=== PATIENT | female | born 1965 | race American Indian/Alaskan Native ===

== ENCOUNTER 2018-11-21 20:16 | Emergency (ER) | payer BC ==
--- NOTE | 2018-11-21 21:54 | Emergency Department Report ---
Blank Doc - Documentation Documentation: Patient report difficulty breathy with h/o asthma, and acid reflux. Reports ch est pain , mid chest burning. Acid reflux flares and reports vomiting and burping. Came via ambulance.. reports SOB. pain 7/10 burning and constant. Positive cough. Uses asthma inhaler once monthly IBS- linzess GERD- zantac ASTHMA- Inhalker Lungs : CTAB, positive cough Noted frequent burping Tacchycardic at 112 and other vs stable. afeb Anxious labs, xray ekg. Duoneb
[2018-11-21] MEDS ORDERED: DUONEB *Not for PRN Use IH ONE (21:58)
--- NOTE | 2018-11-21 22:39 | XRay Report ---
CHEST 2 VIEWS INDICATION / CLINICAL INFORMATION: Cough and chest pain. COMPARISON: None available. FINDINGS: SUPPORT DEVICES: None. HEART / MEDIASTINUM: The heart size and pulmonary vasculature are normal. The aorta is normal in james yvette. LUNGS / PLEURA: No significant pulmonary or pleural abnormality. No pneumothorax. ADDITIONAL FINDINGS: No significant additional findings. IMPRESSION: No acute findings. Signer Name: Kana Dowd MD Signed: 11/21/2018 10:34 PM Workstation Name: [id number]
[2018-11-21 22:46] LABS: Basophils # (Auto) 0.1 K/mm3 (0.0-0.1); Basophils % (Auto) 0.6 % (0.0-1.8); Eosinophils # (Auto) 0.1 K/mm3 (0.0-0.4); Eosinophils % (Auto) 0.9 % (0.0-4.3); Hematocrit 38.9 % (30.3-42.9); Hemoglobin 13.2 gm/dl (10.1-14.3); Lymphocytes # (Auto) 3.2 K/mm3 (1.2-5.4); Lymphocytes % (Auto) 24.6 % (13.4-35.0); Mean Corpuscular HGB Conc 34 % (30-34); Mean Corpuscular Volume 93 fl (79-97); Monocytes # (Auto) 1.2 K/mm3 (0.0-0.8); Monocytes % (Auto) 8.9 % (0.0-7.3); Platelet Count 240 K/mm3 (140-440); Red Blood Count 4.18 M/mm3 (3.65-5.03); Red Cell Distribution Width 15.5 % (13.2-15.2)
[2018-11-21 23:13] LABS: BUN/Creatinine Ratio 20; Blood Urea Nitrogen 18 mg/dL (7-17); Hemolysis Index 19
[2018-11-22] MEDS ORDERED: ALUM-MAG HYDROX-SIMETH 200-200-20MG/5ML PO ONE (00:35)
[2018-11-22] MEDS ORDERED: LIDOCAINE VISCOUS 2% PO ONE (00:35)
[2018-11-22] MEDS ORDERED: ATIVAN PO ONE (00:35)
[2018-11-22] MEDS ORDERED: PEPCID PO ONE (00:36)
[2018-11-22] MEDS ORDERED: BENTYL IM ONE (01:52)
--- NOTE | 2018-11-22 02:00 | Emergency Department Report ---
ED General Adult HPI - General Chief complaint: Dyspnea/Respdistress Stated complaint: SHANNAN Time Seen by Provider: 11/21/18 21:47 Source: patient Mode of arrival: Ambulatory Limitations: No Limitations - History of Present Illness Initial comments: Patient is a 53-year-old English female who states she's had shortness of breath and some epigastric discomfort for the last 24 hours. Patient has history of acid reflux. Patient states that is causing a burning sensation in her chest and lots of belching. Patient states she feels that she can't keep c atch her breath and was gasping. Patient states the discomfort is 7 out of 10 in severity. She denies fevers chills cough cold or congestion. - Related Data Previous Rx's Medication Instructions Recorded Last Taken Type Dicyclomine [Bentyl] 20 mg PO QID #10 tablet 11/22/18 Unknown Rx Famotidine [Pepcid] 40 mg PO QHS #10 tablet 11/22/18 Unknown Rx Ondansetron [Zofran Odt] 2 mg PO BID PRN #4 tab.rapdis 11/22/18 Unknown Rx Allergies Allergy/AdvReac Type Severity Reaction Status Date / Time No Known Allergies Allergy Verified 11/22/18 01:33 ED Review of Systems ROS: Stated complaint: SHANNAN Other details as noted in HPI Comment: All other systems reviewed and negative ED Past Medical Hx - Past Medical History Hx GERD: Yes Hx Asthma: Yes Additional medical history: IBS - Surgical History Past Surgical History?: No - Social History Smoking Status: Never Smoker Substance Use Type: None - Medications Home Medications: Home Medications Medication Instructions Recorded Confirmed Last Taken Type Dicyclomine [Bentyl] 20 mg PO QID #10 tablet 11/22/18 Unknown Rx Famotidine [Pepcid] 40 mg PO QHS #10 tablet 11/22/18 Unknown Rx Ondansetron [Zofran Odt] 2 mg PO BID PRN #4 tab.rapdis 11/22/18 Unknown Rx ED Physical Exam - General Limitations: No Limitations General appearance: alert, anxious - Head Head exam: Present: atraumatic, normocephalic - Eye Eye exam: Present: normal appearance, PERRL, EOMI - ENT ENT exam: Present: mucous membranes moist - Neck Neck exam: Present: normal inspection - Respiratory Respiratory exam: Present: normal lung sounds bilaterally. Absent: respiratory distress, wheezes, rales, rhonchi - Cardiovascular Cardiovascular Exam: Present: regular rate, normal rhythm, normal heart sounds. Absent: systolic murmur, diastolic murmur, rubs, gallop - GI/Abdominal GI/Abdominal exam: Present: soft, tenderness (epigastric), normal bowel sounds. Absent: distended, guarding, rebound, rigid - Extremities Exam Extremities exam: Present: normal inspection - Back Exam Back exam: Present: normal inspection - Neurological Exam Neurological exam: Present: alert, oriented X3 - Psychiatric Psychiatric exam: Present: normal affect, normal mood - Skin Skin exam: Present: warm, dry, intact, normal color. Absent: rash ED Course Vital Signs 11/21/18 20:56 Temperature 97.2 F L Pulse Rate 112 H Respiratory 20 Rate Blood Pressure 128/71 O2 Sat by Pulse 100 Oximetry ED Medical Decision Making - Lab Data Result diagrams: 11/21/18 22:33 11/21/18 22:36 Lab Results 11/21/18 11/21/18 Range/Units 22:33 22:36 WBC 13.2 H (4.5-11.0) K/mm3 RBC 4.18 (3.65-5.03) M/mm3 Hgb 13.2 (10.1-14.3) gm/dl Hct 38.9 (30.3-42.9) % MCV 93 (79-97) fl MCH 32 (28-32) pg MCHC 34 (30-34) % RDW 15.5 H (13.2-15.2) % Plt Count 240 (140-440) K/mm3 Lymph % (Auto) 24.6 (13.4-35.0) % [place] % (Auto) 8.9 H (0.0-7.3) % Eos % (Auto) 0.9 (0.0-4.3) % Baso % (Auto) 0.6 (0.0-1.8) % Lymph # 3.2 (1.2-5.4) K/mm3 [place] # 1.2 H (0.0-0.8) K/mm3 Eos # 0.1 (0.0-0.4) K/mm3 Baso # 0.1 (0.0-0.1) K/mm3 Seg Neutrophils % 65.0 (40.0-70.0) % Seg Neutrophils # 8.5 H (1.8-7.7) K/mm3 Sodium 138 (137-145) mmol/L Potassium 3.0 L (3.6-5.0) mmol/L Chloride 98.9 (98-107) mmol/L Carbon Dioxide 25 (22-30) mmol/L Anion Gap 17 mmol/L BUN 18 H (7-17) mg/dL Creatinine 0.9 (0.7-1.2) mg/dL Estimated GFR > 60 ml/min BUN/Creatinine Ratio 20 % Glucose 109 H (65-100) mg/dL Calcium 10.0 (8.4-10.2) mg/dL - EKG Data -: EKG Interpreted by Fl EKG shows normal: sinus rhythm, axis, intervals, QRS complexes, ST-T waves Rate: tachycardia - EKG Data Interpretation: normal EKG - Radiology Data Radiology results: report reviewed (CXR WNL) - Medical Decision Making Patient was given Zofran as well as Maalox and viscous lidocaine and Bentyl. Patient's lungs are clear to auscultation her O2 sat is 100% patient was noted to have no symptoms when she was in the room by herself. Patient be discharged home. Critical care attestation.: If time is entered above; I have spent that time in minutes in the direct care of this critically ill patient, excluding procedure time. ED Disposition Clinical Impression: GERD (gastroesophageal reflux disease) Qualifiers: Esophagitis presence: esophagitis presence not specified Qualified Code(s): K21.9 - Gastro-esophageal reflux disease without esophagitis Disposition: DC- TO HOME OR SELFCARE Is pt being admited?: No Does the pt Need Aspirin: No Condition: Stable Instructions: Diet for Ulcers and Gastritis (ED), Gastroesophageal Reflux Disease (ED) Referrals: DAVID ABDI MD [Primary Care Provider] - 3-5 Days Time of Disposition: 02:00
[2018-11-22 02:13] VITALS: BP 137/81
== END 2018-11-22 02:13 | disposition home or self-care (01) ==
LOC: ED 20:16
DX: K21.9 Gastro-esophageal reflux disease without esophagitis (principal); J45.909 Unspecified asthma, uncomplicated; K58.9 Irritable bowel syndrome, unspecified; Z79.899 Other long term (current) drug therapy
CPT/HCPCS: 36415; 71046; 80048; 85025; 93005; 93010; 96372; 99284; J0500

== ENCOUNTER 2018-12-04 10:21 | Day surgery (SDC) | payer BC, OTHER ==
--- NOTE | 2018-12-04 09:21 | Anesthesia Day of Surgery ---
Anesthesia Day of Surgery - Day of Surgery Patient Examined: Yes Patient H&P Reviewed: Yes Patient is NPO: Yes
--- NOTE | 2018-12-04 09:24 | Anesthesia Consultation ---
Anesthesia Consult and Med Hx Date of service: 12/04/18 - Airway Anesthetic Teeth Evaluation: Good ROM Head & Neck: Adequate Mental/Hyoid Distance: Adequate Mallampati Class: Class II Intubation Access Assessment: Probably Good - Pulmonary Exam CTA: Yes - Cardiac Exam Cardiac Exam: RRR - Pre-Operative Health Status ASA Pre-Surgery Classification: ASA2 Proposed Anesthetic Plan: MAC - Pulmonary Hx Asthma: Yes - Cardiovascular System Hx Hypertension: Yes - Gastrointestinal Hx Gastroesophageal Reflux Disease: Yes
[~2018-12-04 10:21] MED LIST: NACL 0.9% 1000 ML 1,000 ML IV SCH
[2018-12-04] MEDS ORDERED: DIPRIVAN 10 MG/ML IV ONE ×2 (12:53)
[2018-12-04] MEDS ORDERED: XYLOCAINE MPF 2% ONE (13:00)
--- NOTE | 2018-12-04 13:31 | Operative Report ---
Operative Report Operative Report: Date of procedure: 12/04/2018 Procedure: Colonoscopy with ablation and Multiple Hot Biopsy Polypectomies. Attending physician: Christiano Cerna MD Local Delivery Driver: Christiano Cerna MD Indication: Patient is a 53-year-old female who presents for screening colonoscopy. This colonoscopy serves to evaluate patient so that treatment may be directed based on the findings. Consent: Informed consent was obtained after advising the patient and family regarding nature of this procedure, its indications, potential benefits as well as possible complications including but not limited to bleeding perforation and adverse reaction to medication, infection as well as other cardiopulmonary complications. An informed written and verbal consent was then obtained after due opportunity was provided for questions and answers. Monitoring: Patient was monitored continuously with pulse oximetry and electrocardiographic recordings as well as blood pressure recordings. Vital signs remained stable throughout this procedure with no untoward events. Preoperative assessment: Patient was assessed immediately prior to this proce dure for capacity to tolerate monitored anesthesia care and moderate sedation as well as general anesthesia. Patient's ASA classification is 2, Mallampati class is 2, Hyomental distance is 3. Instrument: Olympus video colonoscope Medications: Propofol given intravenously in divided doses. For details please refer to anesthesia records. Description of procedure: Patient was placed in the left lateral decubitus position patient had additional diminutive polyps that were ablated but in the sigmoid colon and in the rectum. In the transverse colon, patient had 2 flat polyps measuring approximately 6 mm each which were removed by hot biopsy polypectomy and retrieved. There was substantial retained stool in the sigmoid and the cecum and ascending colon. There were no other additional mucosal abnormalities seen. Achieving sedation, a digital rectal examination was performed following which the colonoscope was introduced into the anal verge and advanced to the cecum which was identified by the cecal valve, the appendiceal orifice, as well as by the cecal strap and direct transillumination. The colonoscope was subsequently withdrawn with careful inspection of all mucosal surfaces. Patient tolerated this procedure well and was subsequently taken to the recovery room. The following findings were noted. Findings: The preparation was fair. Patient had multiple diminutive polyps in the sigmoid colon which were removed by hot biopsy polypectomy. In all there were more than 10 of these polyps which measured between 4-6 mm. They were all flat. There was some substantial retained stool in the cecum and ascending colon. Also, patient had 2 diminutive polyps that were flat, measuring approximately 6 mm each in the transverse colon. These were removed by hot biopsy polypectomy. The rest of the colon to the cecum was normal On the retroflex view at the anal verge, patient had internal hemorrhoids. Impression: Sigmoid colon polyps status post hot biopsy polypectomy and ablation Rectal polyps status post ablation Transverse colon polyps status post hot biopsy polypectomy Retained stool in the ascending colon and cecum Internal hemorrhoids. Plan: Follow pathology report. High-fiber diet. Repeat colonoscopy in 12 months due to multiple colon polyps and presence of significant retained stool.
--- NOTE | 2018-12-04 13:32 | Discharge Summary ---
Short Stay Discharge Plan Activity: advance as tolerated Weight Bearing Status: Weight Bear as Tolerated Diet: regular Follow up with: [facility] [Primary Care Provider] - 7 Days
[2018-12-04 14:19] VITALS: BP 134/65
--- NOTE | 2018-12-04 17:07 | Operative Report ---
Operative Report Operative Report: Date of procedure: 12/04/2018 Procedure: Colonoscopy with ablation and Multiple Hot Biopsy Polypectomies. Attending physician: Christiano Cerna MD Wholesale Buyer: Christiano Cerna MD Indication: Patient is a 53-year-old female who presents for screening colonoscopy. This colonoscopy serves to evaluate patient so that treatment may be directed based on the findings. Consent: Informed consent was obtained after advising the patient and family regarding nature of this procedure, its indications, potential benefits as well as possible complications including but not limited to bleeding perforation and adverse reaction to medication, infection as well as other cardiopulmonary complications. An informed written and verbal consent was then obtained after due opportunity was provided for questions and answers. Monitoring: Patient was monitored continuously with pulse oximetry and electrocardiographic recordings as well as blood pressure recordings. Vital signs remained stable throughout this procedure with no untoward events. Preoperative assessment: Patient was assessed immediately prior to this proce dure for capacity to tolerate monitored anesthesia care and moderate sedation as well as general anesthesia. Patient's ASA classification is 2, Mallampati class is 2, Hyomental distance is 3. Instrument: Olympus video colonoscope Medications: Propofol given intravenously in divided doses. For details please refer to anesthesia records. Description of procedure: Patient was placed in the left lateral decubitus position after achieving sedation, a digital rectal examination was performed following which the colonoscope was introduced into the anal verge and advanced to the cecum which was identified by the cecal valve, the appendiceal orifice, as well as by the cecal strap and direct transillumination. The colonoscope was subsequently withdrawn with careful inspection of all mucosal surfaces. Patient tolerated this procedure well and was subsequently taken to the recovery room. The following findings were noted. Findings: The preparation was fair. Patient had multiple diminutive polyps in the sigmoid colon which were removed by hot biopsy polypectomy. In all there were more than 10 of these polyps which measured between 4-6 mm. They were all flat. There was some substantial retained stool in the cecum and ascending colon. Also, patient had 2 diminutive polyps that were flat, measuring approximately 6 mm each in the transverse colon. These were removed by hot biopsy polypectomy. The rest of the colon to the cecum was normal On the retroflex view at the anal verge, patient had internal hemorrhoids. Impression: Sigmoid colon polyps status post hot biopsy polypectomy and ablation Rectal polyps status post ablation Transverse colon polyps status post hot biopsy polypectomy Retained stool in the ascending colon and cecum Internal hemorrhoids. Plan: Follow pathology report. High-fiber diet. Repeat colonoscopy in 12 months due to multiple colon polyps and presence of significant retained stool.
== END 2018-12-04 10:22 | disposition home or self-care (01) ==
LOC: GIO 10:21
PROVIDERS: ATTEND Internal Medicine Gastroenterology
DX: Z12.11 Encounter for screening for malignant neoplasm of colon (principal); K63.5 Polyp of colon; K64.8 Other hemorrhoids; K63.89 Other specified diseases of intestine; I10 Essential (primary) hypertension; J45.909 Unspecified asthma, uncomplicated; K21.9 Gastro-esophageal reflux disease without esophagitis; Z79.899 Other long term (current) drug therapy
CPT/HCPCS: 45384; 45388; 88305; J2704; J7030

== ENCOUNTER 2018-12-18 09:06 | Day surgery (SDC) | payer BC, OTHER ==
[2018-12-18] MEDS ORDERED: NACL 0.9% 1000 ML 1,000 ML IV SCH (10:00)
--- NOTE | 2018-12-18 10:03 | Anesthesia Day of Surgery ---
Anesthesia Day of Surgery - Day of Surgery Patient Examined: Yes Patient H&P Reviewed: Yes Patient is NPO: Yes Beta Blockers: No Cardiac Clearance: No Pulmonary Clearance: No
--- NOTE | 2018-12-18 10:05 | Anesthesia Consultation ---
Anesthesia Consult and Med Hx Date of service: 12/18/18 - Airway Anesthetic Teeth Evaluation: Good ROM Head & Neck: Adequate Mental/Hyoid Distance: Adequate Mallampati Class: Class II Intubation Access Assessment: Probably Good - Pulmonary Exam CTA: Yes - Cardiac Exam Cardiac Exam: No Murmur - Pre-Operative Health Status ASA Pre-Surgery Classification: ASA3 Proposed Anesthetic Plan: MAC - Pulmonary Hx Asthma: Yes - Cardiovascular System Hx Hypertension: Yes - Gastrointestinal Hx Gastroesophageal Reflux Disease: Yes - Hematic Hx Anemia: Yes - Other Systems Hx Obesity: Yes
[2018-12-18] MEDS ORDERED: VERSED ONE (11:25)
[2018-12-18] MEDS ORDERED: DIPRIVAN 10 MG/ML IV ONE (11:25)
[2018-12-18] MEDS ORDERED: WATER FOR IRRIG STERILE IR ONE (12:32)
[2018-12-18] MEDS ORDERED: WATER FOR IRRIG STERILE ONE (12:33)
--- NOTE | 2018-12-18 12:50 | Operative Report ---
Operative Report Operative Report: Date: 12/18/2018 Operative Report: Procedure: Esophagogastroduodenoscopy with multiple mucosal biopsies. Attending physician: Christiano Cerna MD Ingredient Handler: Christiano Cerna MD Indication: Patient is a 53 -year-old female who presents with a history of recurrent epigastric pain, heartburn, dysphagia and indigestion. An upper endoscopy is done to assess patient, so that treatment may be directed based on the findings. Consent: Informed consent was obtained after advising the patient and family regarding nature of this procedure, its indications, potential benefits as well as possible complications including but not limited to bleeding perforation and adverse reaction to medication, infection as well as other cardiopulmonary complications. An informed written and verbal consent was then obtained after due opportunity was provided for questions and answers. Monitoring: Patient was monitored continuously with pulse oximetry and electrocardiographic recordings as well as blood pressure recordings. Vital signs remained stable throughout this procedure with no untoward events. Preoperative assessment: Patient was assessed immediately prior to this procedure for capacity to tolerate monitored anesthesia care and moderate sedation as well as general anesthesia. Patient's ASA classification is 2, Mallampati class is 2, Hyomental distance is 3. Instrument: Olympu video endoscope Medications: Propofol given intravenously in divided doses. For details please refer to anesthesia records. Description of procedure: Patient was placed in the left lateral decubitus position after achieving sedation, the endoscope was introduced into the esophagus under direct vision. It was then advanced beyond the esophagus into the stomach and then beyond the stomach into the duodenum and to the second portion of the duodenum. It was subsequently withdrawn with careful inspection of all mucosal surfaces with the following findings. Findings: Patient has an irregular Z line at 38 cm. patient had erosive esophagitis of moderate severity with the me erosions in the distal esophagus. There was a hiatal hernia seen on entry into the stomach. There was erythema and erosions seen in the gastric antrum. Biopsies of the antrum were obtained for histopathology. The duodenum was normal to second portion. Impression: Irregular Z line. Hiatal hernia Erosive esophagitis Gastric antral erythema Gastric antral erosions Plan: Continue treatment with proton pump inhibitors. Follow pathology report. Direct additional treatment based on the pathology report. Patient will be observed clinically. Additional recommendations will be made follow-up.
--- NOTE | 2018-12-18 12:50 | Discharge Summary ---
Short Stay Discharge Plan Activity: advance as tolerated Weight Bearing Status: Weight Bear as Tolerated Diet: regular Follow up with: [facility] [Primary Care Provider] - 7 Days
[2018-12-18] MEDS ORDERED: XYLOCAINE MPF 2% ONE (13:00)
[2018-12-18 13:24] VITALS: BP 113/58
== END 2018-12-18 09:07 | disposition home or self-care (01) ==
LOC: GIO 09:06
PROVIDERS: ATTEND Internal Medicine Gastroenterology
DX: K21.0 Gastro-esophageal reflux disease with esophagitis (principal); K44.9 Diaphragmatic hernia without obstruction or gangrene; K30 Functional dyspepsia; I10 Essential (primary) hypertension; D64.9 Anemia, unspecified; J45.909 Unspecified asthma, uncomplicated; E66.9 Obesity, unspecified; Z79.899 Other long term (current) drug therapy; Z68.35 Body mass index [BMI] 35.0-35.9, adult
CPT/HCPCS: 43239; 88305; 88342; J2250; J2704; J7030